=== PATIENT | female | born 1980 ===

== ENCOUNTER → 2019-06-25 | Outpatient (CLI) | payer OTHER ==
--- NOTE | 2019-06-30 01:12 | RT HOLTER TEST ---
FACILITY: [facility] - [place] PATIENT NAME: MILAGROS NIELSEN : [id number] MR: [id number]: [id number] EXAM DATE: ORDERING PHYSICIAN: ROMI ATWOOD TECHNOLOGIST: MG Hook-up date: 2019-06-25 13:21:00 Duration: 47:59:00 Test Indications: r002.2 Medications: [id number] QRS complexes 2 Ventricular ectopics which represent <1 % of total QRS comp. 18 Supraventricular ectopics which represent <1 % of total QRS comp. * Paced QRS complexes which represent % of total QRS comp. VENTRICULAR ECTOPY 2 Isolated 0 Bigeminal Cycles 0 Couplets 0 Runs 0 Beats in Runs * Beats LONGEST at * BPM at :: -- * Beats FASTEST at * BPM at :: -- SUPRAVENTRICULAR ECTOPY 18 Isolated 0 Couplets 0 Runs 0 Beats in Runs * Beats LONGEST at * BPM at :: -- * Beats FASTEST at * BPM at :: -- HEART RATES 44 MIN at 06:22:30 2019-06-26 80 AVG 169 MAX at 07:36:41 2019-06-26 LONGEST RR 1.584 secs at 05:07:17 2019-06-26 S-T LEVELS Channel 1 -12.800 mm MIN at 13:21:00 2019-06-25 -12.800 mm MAX at 13:21:00 2019-06-25 Channel 3 -12.800 mm MIN at 13:21:00 2019-06-25 -12.800 mm MAX at 13:21:00 2019-06-25 Sinus rhythym throughout study. QRS widening during exercise was captured, this is of unclear significance but is abnormal. Further evaluation by a registered radiologic technologist may be waranted based on clinical picture. Confirmed by Tree Wilcox ([id number]) on 06/30/2019 1:08:14 AM Referred By: Overread By: Tree Lira
== END ==
LOC: RESP 06:44
PROVIDERS: ATTEND Physician Assistant
DX: R00.2 Palpitations (principal)
CPT/HCPCS: 93225; 93226